=== PATIENT | female | born 1960 | race Caucasian/White ===

== ENCOUNTER → 2019-01-21 | Outpatient (CLI) | payer OTHER | LOC: FIMAGING 11:06 | DX: E03.4 Atrophy of thyroid (acquired) (principal) ==

== ENCOUNTER → 2019-03-09 | Outpatient (CLI) | payer OTHER | LOC: FIMAGING 12:38 | PROVIDERS: ATTEND Internal Medicine | DX: R06.02 Shortness of breath (principal) ==